=== PATIENT | female | born 1935 | race Caucasian/White ===

== ENCOUNTER 2019-03-08 22:28 | Inpatient (IN) ==
[2019-03-08] MEDS ORDERED: Ondansetron 4 MG/2 ML VIAL IVP ONE (22:31)
[2019-03-08] MEDS ORDERED: 0.9 % Sodium Chloride 1,000 ML IVC ONE (22:31)
[2019-03-08 23:06] LABS: Basophils # 0.1 K/mcL (0.0-0.2); Basophils % 0.6 %; Eosinophils # 0.1 K/mcL (0.0-0.6); Eosinophils % 0.9 %; Hematocrit 34.4 % (35.3-44.9); Hemoglobin 11.2 g/dL (11.5-15.4); Immature Granulocytes % 0.4 % (0-4); Lymphocytes % 10.6 %; Mean Corpuscular HGB Conc 32.6 g/dL (31.6-35.5); Mean Corpuscular Hemoglobin 30.6 pg (28.0-33.3); Mean Platelet Volume 9.6 fL (9.4-12.4); Monocytes # 0.6 K/mcL (0.0-1.3); Monocytes % 6.9 %; Neutrophils # 7.5 K/mcL (1.6-8.9); Platelet Count 231 K/mcL (140-400); Red Blood Count 3.66 M/mcL (3.82-4.97); Red Cell Distribution Width 15.3 % (11.5-14.5); Segmented Neutrophils % 80.6 %; White Blood Count 9.3 K/mcL (4.3-11.1)
[2019-03-08 23:29] LABS: Bilirubin,Urine Negative (Negative); Blood,Urine Negative (Negative); Clarity,Urine Slightly Cloudy (Clear); Color,Urine Yellow (Yellow); Glucose,Urine (UA) Normal (Normal); Ketones,Urine Negative (Negative); Leukocyte Esterase,Urine Trace (Negative); Nitrite,Urine Negative (Negative); PH,Urine 5.5 pH Units (5.0-8.0); Protein,Urine 100 mg/dL (Neg-Trace); Specific Gravity,Urine 1.025 (1.010-1.025); Urobilinogen,Urine Normal (Normal)
[2019-03-08 23:35] LABS: Calcium 8.9 mg/dL (8.6-10.3); Potassium 4.9 mEq/L (3.5-5.1)
[2019-03-08 23:36] LABS: Alanine Aminotransferase 22 Units/L (7-52); Albumin 4.1 g/dL (3.5-5.7); Albumin/Globulin Ratio 1.6 (1.1-2.2); Alkaline Phosphatase 77 Units/L (34-104); Aspartate Amino Transferase 31 Units/L (13-39); Bilirubin,Direct 0.1 mg/dL (0.0-0.2); Bilirubin,Indirect 0.5 mg/dL (0.0-1.2); Bilirubin,Total 0.6 mg/dL (0.3-1.0); Globulin 2.6 g/dL (2.4-3.5); Lipase 61 Units/L (11-82); Total Protein 6.7 g/dL (6.4-8.9)
[2019-03-08 23:37] LABS: Bacteria,Urine Few per hpf (None-Few); Squamous Epithelial Cell,Urine Moderate per lpf (None-Few); WBC,Urine 15-30 per hpf (0-3)
[2019-03-08 23:39] LABS: Hyaline Casts,Urine Few per lpf (None-Few)
[2019-03-08 23:40] LABS: Troponin I < 0.03 ng/mL (< 0.04)
--- NOTE | 2019-03-09 01:25 | Emergency Department Note ---
Disposition Clinical Impression: Weakness generalized Urinary tract infection Qualifiers: Urinary tract infection type: site unspecified Hematuria presence: with hematu noman Qualified Code(s): N39.0 - Urinary tract infection, site not specified; R31.9 - Hematuria, unspecified Disposition: Admitted As Inpatient Condition: Fair Referrals: Esthela Harris DO [Primary Care Provider] - Time of Disposition: :30 Weakness HPI - General Chief complaint: ED Fall Stated complaint: fall Time Seen by Provider: 03/08/19 22:29 Source: patient, EMS Mode of arrival: EMS Limitations: physical limitation, other Nursing Notes Reviewed: Yes Vital Signs Reviewed: Yes - History of Present Illness Pt Subjective Complaint: generalized weakness/fatigue Onset (ago): day(s) Duration: constant, gradually worsening Location: generalized Pain Severity: none Pain Scale: 0 Improves with: none Worsens with: none Context: other (Patient was brought in because she had a fall at home today because she been weak.) Associated symptoms: Reports: other (Patient did hit the left side of her face when she fell. She does not complain of any other symptoms.) - Related Data Home Medications Medication Instructions Recorded Confirmed Furosemide [Lasix] 40 mg PO BID 05/01/15 12/29/18 Metoprolol [Lopressor] 100 mg PO BID 05/01/15 12/29/18 Propafenone [Rhythmol] 150 mg PO TID 05/01/15 12/29/18 Warfarin [Coumadin] 3 mg PO AD 05/01/15 12/29/18 Allopurinol [Zyloprim 100 MG] 100 mg PO BID 11/12/16 12/29/18 SitaGLIPtin [Januvia] 25 mg PO DAILY 02/01/17 12/29/18 Tramadol HCl [Ultram] 50 mg PO QID PRN 08/02/17 12/29/18 dilTIAZem HCl [Diltiazem ER] 120 mg PO DAILY 08/02/17 12/29/18 Acetaminophen [Tylenol Arthritis] 1 - 2 tab PO Q8H PRN 02/28/18 12/29/18 Allergies Allergy/AdvReac Type Severity Reaction Status Date / Time aspirin Allergy See Verified 12/29/18 03:53 [From Darvon Compound-65] Comments caffeine Allergy See Verified 12/29/18 03:53 [From Darvon Compound-65] Comments propoxyphene [From Darvon] Allergy See Verified 12/29/18 03:53 Comments All systems ED: reviewed and negative except as stated. Constitutional: Denies: fever, chills ENT ED: Denies: ear pain, throat pain, congestion Cardiovascular: Denies: chest pain, palpitations Respiratory: Denies: cough, dyspnea Gastrointestinal: Denies: abdominal pain, vomiting, diarrhea Musculoskeletal: Denies: back pain, neck pain Integumentary: Reports: abrasion (To face) Neurological: Denies: headache, numbness, paresthesias Past Medical History - Past Medical History Attestation: Yes The following information was validated with the patient. Source: patient, old records reviewed, nursing notes reviewed Medical history: Reports: CHF, diabetes, hypertension, other Surgical history: Reports: cholecystectomy, hysterectomy, pacemaker/AICD Psychiatric history: Reports: no psych history ROAD TEST EXAMINER history: Reports: no ROAD TEST EXAMINER history - Social History Smoking Status: Never smoker Smokeless Tobacco Status: No Alcohol use: Reports: none Drug use: Reports: none Physical Exam - General Limitations: physical limitation, other General appearance: alert, in no apparent distress - Head Head exam: atraumatic, normocephalic, normal inspection - Eye Eye exam: Present: normal appearance, PERRL, EOMI. Absent: scleral icterus, conjunctival injection - ENT ENT exam: normal exam, normal oropharynx, mucous membranes moist, normal external ear exam - Neck Neck exam: Present: normal inspection, full ROM, trachea midline. Absent: tenderness, meningismus - Chest Chest inspection: Present: normal inspection, symmetric chest wall rise. Absent: tenderness - Respiratory Respiratory exam: Present: normal lung sounds bilaterally. Absent: respiratory distress, wheezes - Cardiovascular Cardiovascular exam: Present: regular rate, normal rhythm, normal heart sounds - Abdominal Exam Abdominal exam: Present: soft, Non-Tender, normal bowel sounds - Extremities Exam Extremities exam: Present: pedal edema. Absent: tenderness - Neurological Exam Neurological exam: Present: alert, oriented X3. Absent: motor sensory deficit - Psychiatric Psychiatric exam: Present: normal affect, normal mood - Skin Skin exam: Present: warm, dry, other (Abrasion to left side of face) Course Course Narrative: Patient arrives after a fall at home but this is superimposed on some gener alized weakness over the past couple of days. Today's fall resulted in abrasion to the left side of her face. Her mental status is normal and her neurologic examination is normal. She definitely has generalized weakness as evidenced by are need to help her get up at the bedside just use a bedside commode. We will do a weakness workup. Disposition will be based on diagnostic results and reevaluation. - Reevaluation(s) Reevaluation #1: Urinalysis is positive. The rest of the workup really unremarkable. Her values are at baseline or better than baseline. But with dysuria tract infection she has generalized weakness its resulting in falls. She is to be admitted. I have already spoken with the hospitalist. I have already given her Rocephin. Time: 01:28 - Consultations Consultation #1: Dr. Casey, hospitalist - I discussed the case with the hospitalist. He accepted the patient for admission. Time: 01:10 Vital Signs Temperature 97.0 F L 03/08/19 22:30 Pulse Rate 62 03/08/19 22:30 Respiratory Rate 16 03/08/19 22:30 Blood Pressure 158/74 03/08/19 22:30 O2 Sat by Pulse Oximetry 94 03/08/19 22:30 Temperature 97.0 F L 03/08/19 22:30 Pulse Rate 62 03/08/19 22:30 Respiratory Rate 16 03/08/19 22:30 Blood Pressure 158/74 03/08/19 22:30 O2 Sat by Pulse Oximetry 94 03/08/19 22:30 Oxygen Delivery Oxygen Delivery Room Air Weakness - Medical Records Medical records reviewed: Yes I reviewed the patient's medical records. - Lab Data Lab results reviewed: Yes I reviewed the patient's lab results. Result diagrams: 03/08/19 23:00 03/08/19 23:00 Lab Results 03/08/19 03/08/19 03/08/19 Range/Units 23:00 23:00 23:00 WBC 9.3 (4.3-11.1) K/mcL RBC 3.66 L (3.82-4.97) M/mcL Hgb 11.2 L (11.5-15.4) g/dL Hct 34.4 L (35.3-44.9) % MCV 94.0 (83.0-100.0) fL MCH 30.6 (28.0-33.3) pg MCHC 32.6 (31.6-35.5) g/dL RDW 15.3 H (11.5-14.5) % Plt Count 231 (140-400) K/mcL MPV 9.6 (9.4-12.4) fL Immature Gran % 0.4 (0-4) % Seg Neutrophils % 80.6 % Lymphocytes % 10.6 % Monocytes % 6.9 % Eosinophils % 0.9 % Basophils % 0.6 % Neutrophils # 7.5 (1.6-8.9) K/mcL Lymphocytes # 1.0 (0.6-4.6) K/mcL Monocytes # 0.6 (0.0-1.3) K/mcL Eosinophils # 0.1 (0.0-0.6) K/mcL Basophils # 0.1 (0.0-0.2) K/mcL Sodium 136 (136-145) mEq/L Potassium 4.9 (3.5-5.1) mEq/L Chloride 108 H (98-107) mEq/L Carbon Dioxide 19 L (23-29) mEq/L BUN 26 H (8-23) mg/dL Creatinine 1.90 H (0.60-1.20) mg/dL Est GFR ( Amer) 31 L (> 60) Est GFR (Non-Af Amer) 25 L (> 60) BUN/Creatinine Ratio 14 (6-26) Glucose 144 H (70-105) mg/dL Calculated Osmolality 289 (280-300) Lactic Acid (0.5-2.2) mmol/L Calcium 8.9 (8.6-10.3) mg/dL Total Bilirubin 0.6 (0.3-1.0) mg/dL Direct Bilirubin 0.1 (0.0-0.2) mg/dL Indirect Bilirubin 0.5 (0.0-1.2) mg/dL AST 31 (13-39) Units/L ALT 22 (7-52) Units/L Alkaline Phosphatase 77 (34-104) Units/L Troponin I < 0.03 (< 0.04) ng/mL Serum Total Protein 6.7 (6.4-8.9) g/dL Albumin 4.1 (3.5-5.7) g/dL Globulin 2.6 (2.4-3.5) g/dL Albumin/Globulin Ratio 1.6 (1.1-2.2) Lipase 61 (11-82) Units/L Urine Color (Yellow) Urine Clarity (Clear) Urine pH (5.0-8.0) pH Units Ur Specific [place] (1.010-1.025) Urine Protein (Neg-Trace) mg/dL Urine Glucose (UA) (Normal) mg/dL Urine Ketones (Negative) mg/dL Urine Blood (Negative) Urine Nitrite (Negative) Urine Bilirubin (Negative) Urine Urobilinogen (Normal) mg/dL Ur Leukocyte Esterase (Negative) Urine Microscopic RBC (0-3) per hpf Urine Microscopic WBC (0-3) per hpf Ur Squamous Epith Cells (None-Few) per lpf Urine Bacteria (None-Few) per hpf Hyaline Casts (None-Few) per lpf Ur Culture Indicated? (NO) 03/08/19 03/08/19 Range/Units 23:00 23:25 WBC (4.3-11.1) K/mcL RBC (3.82-4.97) M/mcL Hgb (11.5-15.4) g/dL Hct (35.3-44.9) % MCV (83.0-100.0) fL MCH (28.0-33.3) pg MCHC (31.6-35.5) g/dL RDW (11.5-14.5) % Plt Count (140-400) K/mcL MPV (9.4-12.4) fL Immature Gran % (0-4) % Seg Neutrophils % % Lymphocytes % % Monocytes % % Eosinophils % % Basophils % % Neutrophils # (1.6-8.9) K/mcL Lymphocytes # (0.6-4.6) K/mcL Monocytes # (0.0-1.3) K/mcL Eosinophils # (0.0-0.6) K/mcL Basophils # (0.0-0.2) K/mcL Sodium (136-145) mEq/L Potassium (3.5-5.1) mEq/L Chloride (98-107) mEq/L Carbon Dioxide (23-29) mEq/L BUN (8-23) mg/dL Creatinine (0.60-1.20) mg/dL Est GFR ( Amer) (> 60) Est GFR (Non-Af Amer) (> 60) BUN/Creatinine Ratio (6-26) Glucose (70-105) mg/dL Calculated Osmolality (280-300) Lactic Acid 0.9 (0.5-2.2) mmol/L Calcium (8.6-10.3) mg/dL Total Bilirubin (0.3-1.0) mg/dL Direct Bilirubin (0.0-0.2) mg/dL Indirect Bilirubin (0.0-1.2) mg/dL AST (13-39) Units/L ALT (7-52) Units/L Alkaline Phosphatase (34-104) Units/L Troponin I (< 0.04) ng/mL Serum Total Protein (6.4-8.9) g/dL Albumin (3.5-5.7) g/dL Globulin (2.4-3.5) g/dL Albumin/Globulin Ratio (1.1-2.2) Lipase (11-82) Units/L Urine Color Yellow (Yellow) Urine Clarity Slightly Cloudy A (Clear) Urine pH 5.5 (5.0-8.0) pH Units Ur Specific [place] 1.025 (1.010-1.025) Urine Protein 100 H (Neg-Trace) mg/dL Urine Glucose (UA) Normal (Normal) mg/dL Urine Ketones Negative (Negative) mg/dL Urine Blood Negative (Negative) Urine Nitrite Negative (Negative) Urine Bilirubin Negative (Negative) Urine Urobilinogen Normal (Normal) mg/dL Ur Leukocyte Esterase Trace H (Negative) Urine Microscopic RBC 3-5 H (0-3) per hpf Urine Microscopic WBC 15-30 H (0-3) per hpf Ur Squamous Epith Cells Moderate H (None-Few) per lpf Urine Bacteria Few (None-Few) per hpf Hyaline Casts Few (None-Few) per lpf Ur Culture Indicated? YES A (NO) - Radiology Data Radiology results reviewed: Yes I reviewed the patient's radiology results. - EKG Data EKG attestation: Yes I reviewed and interpreted this EKG. EKG results narrative: Twelve-lead EKG shows atrial paced rhythm. Rate of 60. Normal axis. Good hour progression across cordon. No acute ischemic changes.
[2019-03-09] MEDS ORDERED: Naloxone 0.4 MG/ML INJ IVP PRN (02:42)
[2019-03-09] MEDS ORDERED: 0.9 % Sodium Chloride 1,000 ML IVC SCH (02:42)
[2019-03-09 09:11] LABS: INR 3.5; Prothrombin Time 39.7 Seconds (9.4-12.1)
[2019-03-09] MEDS: *HR* SitaGLIPtin 25 MG TABLET PO SCH ×3 (09:52→19:55)
[2019-03-09] MEDS: Furosemide 40 MG TABLET PO SCH ×2 (09:52→10:03)
[2019-03-09] MEDS: Diltiazem CD (24hr) 120 MG CAPSULE PO SCH (09:53)
--- NOTE | 2019-03-09 10:42 | Internal Med History&Physical ---
Date of Encounter: 03/09/19 Time of Encounter: 10:25 Assessment and Plan (1) Urinary tract infection Current visit: Yes Status: Acute Urine culture pending. Will hold IV fluids given hx of CHF and proceed with IV antibiotics. Qualifiers: Urinary tract infection type: acute cystitis Hematuria presence: without hematuria Qualified Code(s): N30.00 - Acute cystitis without hematuria (2) Weakness generalized Current visit: Yes Status: Acute Likely secondary to underlying UTI. Will treat UTI, have pt up out of bed to chair, and place PT/OT consult. If pt is doing well and progressing to baseline, consider discharge to home tomorrow. (3) CKD (chronic kidney disease) Current visit: No Status: Chronic Stable to improved. Pt is followed by [facility]. Will continue current regimen. Qualifiers: Chronic kidney disease stage: stage 3 (moderate) Qualified Code(s): N18.3 - Chronic kidney disease, stage 3 (moderate) (4) Diabetes mellitus Current visit: No Status: Chronic Stable. Continue home regimen. Qualifiers: Diabetes mellitus type: type 2 Diabetes mellitus rn long term care insulin use: without fdc use Diabetes mellitus complication status: with neurologic complications Diabetes mellitus complication detail: with polyneuropathy Qualified Code(s): E11.42 - Type 2 diabetes mellitus with diabetic polyneuropathy (5) Afib Current visit: No Status: Chronic Rate-controlled. INR supratherapeutic. Will reduce coumadin to 3mg daily and have pt f/u with coumadin clinic at discharge for further monitoring. She is aware to notify coumadin clinic of any antibiotic or med changes made at time of discharge. Qualifiers: Atrial fibrillation type: paroxysmal Qualified Code(s): I48.0 - Paroxysmal atrial fibrillation (6) HTN (hypertension) Current visit: No Status: Chronic Fair control given age. Pt notes that she has been off all diuretics for a week at home. Will have pt remain off diuretic at this time and monitor for elevated BP and fluid overload. Qualifiers: Hypertension type: essential hypertension Qualified Code(s): I10 - Essential (primary) hypertension (7) Anemia Current visit: No Status: Acute Stable and at baseline. Secondary to CKD. Will monitor. Qualifiers: Anemia type: iron deficiency Iron deficiency anemia type: unspecified iron deficiency Qualified Code(s): D50.9 - Iron deficiency anemia, unspecified (8) Supratherapeutic INR Current visit: No Status: Acute Will monitor on reduced coumadin dose. INR goal 2-3. Internal Medicine - H&P: HPI Chief complaint: weakness, fall Admitted From: Emergency Dept Plans for Post Hospital Care: Home History of present illness: Ms. Wallace is a 84 year old female that presented to ED following a fall at her home in which pt struck face. Pt notes that she lives alone and has been feeling generally well until noting increased fatigue and weakness over last few days. On day of presentation, she notes that she was doing work at a desk and experienced considerable vertigo upon standing in which she felt as if her surroundings were spinning upwards. She states that she new she was going to fall and braced herself for the fall, striking only the side of her face upon falling. She denies chest pain, LOC, headache, palpitations, focal weakness, slurred speech, abdominal pain, fevers, chills or urinary symptoms. Pt was transported to ED and had a negative evaluation outside of UA consistent with UTI. Pt was placed on IV antibiotics, IV fluids, and admitted for further evaluation and treatment. Upon examination today, patient states that she feels well and has no complaints. She has yet to be out of bed since being admitted last night, but denies any further episodes of weakness or vertigo. Past Med Surg Social Fam HX - Past Medical History Medical history: atrial fibrillation, CHF, diabetes, hypertension, other Additional medical history: RENAL INSUFFIENCY Psychiatric history: no psych history - Past Surgical History Surgical History: cholecystectomy, hysterectomy, pacemaker/AICD Additional surgical history: RT FISTULA SINCE 10/2018 FOR FUTHER POSSIBLE DIALYSIS - Social History Smoking Status: Never smoker Smokeless Tobacco Status: No Alcohol use: none Drug use: none Internal Medicine - H&P: Meds Furosemide [Lasix] 40 mg PO BID 05/01/15 [History] Metoprolol [Lopressor] 100 mg PO BID 05/01/15 [History] Propafenone [Rhythmol] 150 mg PO TID 05/01/15 [History] Warfarin [Coumadin] 3 mg PO AD 05/01/15 [History] Allopurinol [Zyloprim 100 MG] 100 mg PO BID 11/12/16 [History] SitaGLIPtin [Januvia] 25 mg PO DAILY 02/01/17 [History] Tramadol HCl [Ultram] 50 mg PO QID PRN 08/02/17 [History] dilTIAZem HCl [Diltiazem ER] 120 mg PO DAILY 08/02/17 [History] Acetaminophen [Tylenol Arthritis] 1 - 2 tab PO Q8H PRN 02/28/18 [History] Allergy/AdvReac Type Severity Reaction Status Date / Time aspirin Allergy See Verified 12/29/18 03:53 [From Darvon Compound-65] Comments caffeine Allergy See Verified 12/29/18 03:53 [From Darvon Compound-65] Comments propoxyphene [From Darvon] Allergy See Verified 12/29/18 03:53 Comments All Systems PM: A 10-system review of systems was performed and is negative for pertinent findings except as documented above in the HPI. - Constitutional Vitals: Temp Pulse Resp BP Pulse Ox 97.5 F L 77 16 148/78 96 03/09/19 07:30 03/09/19 07:30 03/09/19 07:30 03/09/19 07:30 03/09/19 07:30 Exam: Gen: Lying in bed, NAD HEENT: NC, AT Neck: Trachea midline, no mass Pulm: No respiratory distress, CTAB CV: Normal S1 and S2, irregularly irregular rhythm Abdomen: Soft, ND, NT Ext: No C/C/E Neuro: No appreciable motor/sensor deficits Skin: Warm and dry, no rash Psych: A&Ox3 Internal Med - H&P Results - Labs CBC & Chem 7: 03/08/19 23:00 03/08/19 23:00 Labs: Short CBC 03/08/19 Range/Units 23:00 WBC 9.3 (4.3-11.1) K/mcL Hgb 11.2 L (11.5-15.4) g/dL Hct 34.4 L (35.3-44.9) % Plt Count 231 (140-400) K/mcL Neutrophils # 7.5 (1.6-8.9) K/mcL BMP 03/08/19 23:00 Sodium 136 Potassium 4.9 Chloride 108 H Carbon Dioxide 19 L BUN 26 H Creatinine 1.90 H Glucose 144 H Calcium 8.9 Cardiac Enzymes 03/08/19 Range/Units 23:00 Troponin I < 0.03 (< 0.04) ng/mL Liver Function 03/08/19 Range/Units 23:00 Total Bilirubin 0.6 (0.3-1.0) mg/dL Direct Bilirubin 0.1 (0.0-0.2) mg/dL AST 31 (13-39) Units/L ALT 22 (7-52) Units/L Alkaline Phosphatase 77 (34-104) Units/L Albumin 4.1 (3.5-5.7) g/dL Urine 03/08/19 Range/Units 23:25 Urine Color Yellow (Yellow) Urine Clarity Slightly Cloudy A (Clear) Urine pH 5.5 (5.0-8.0) pH Units Ur Specific [place] 1.025 (1.010-1.025) Urine Protein 100 H (Neg-Trace) mg/dL Urine Glucose (UA) Normal (Normal) mg/dL - Impressions ITS Impressions Cervical Spine CT 03/08/19 22:30 IMPRESSION: No acute abnormality of the cervical spine. D/ / Moni Godinez MD / Moni Godinez MD Interpreting Provider: Moni Godinez MD Head CT 03/08/19 22:30 IMPRESSION: No acute intracranial abnormality. D/ / Moni Godinez MD / Moni Godinez MD Interpreting Provider: Moni Godinez MD
--- NOTE | 2019-03-09 11:49 | Electrocardiograph Report ---
[place] [id number] Test Date: 2019-03-08 Pat Name: rBe Wallace Department: EDP-12 Room: [facility] Gender: F [employer]: : 1935 Requested By: Gael Snell Order Number: [id number] Reading MD: Jean Contreras Measurements Intervals [place] Rate: 60 P: AK: 306 QRS: 3 QRSD: 111 T: 80 QT: 468 QTc: 468 Interpretive Statements Atrial-paced rhythm Probable anterior infarct, age indeterminate Electronically Signed On 03-09-2019 11:47:56 EDT by Jean Contreras
[2019-03-09] MEDS: *HR* Warfarin 3 MG TABLET PO SCH (17:22)
[2019-03-09] MEDS ORDERED: *HR* Warfarin 3 MG TABLET PO SCH (18:00)
[2019-03-10 06:57] LABS: Hematocrit 29.9 % (35.3-44.9); Hemoglobin 9.6 g/dL (11.5-15.4); Mean Corpuscular HGB Conc 32.1 g/dL (31.6-35.5); Mean Corpuscular Hemoglobin 30.4 pg (28.0-33.3); Mean Corpuscular Volume 94.6 fL (83.0-100.0); Mean Platelet Volume 10.1 fL (9.4-12.4); Platelet Count 198 K/mcL (140-400); Red Blood Count 3.16 M/mcL (3.82-4.97); Red Cell Distribution Width 15.1 % (11.5-14.5); White Blood Count 7.4 K/mcL (4.3-11.1)
[2019-03-10 07:10] LABS: Albumin 3.3 g/dL (3.5-5.7); Calcium 8.1 mg/dL (8.6-10.3); Phosphorous 3.4 mg/dL (2.7-4.5); Potassium 4.7 mEq/L (3.5-5.1)
[2019-03-10] MEDS: Diltiazem CD (24hr) 120 MG CAPSULE PO SCH (08:41)
[2019-03-10] MEDS ORDERED: cefTRIAXone 1,000 MG in 0.9 % Sodium Chloride Mini Bag 100 ML IVPB SCH (09:00)
[2019-03-10] MEDS: Furosemide 40 MG/4 ML VIAL IVP SCH ×2 (14:20→17:38)
--- NOTE | 2019-03-10 15:37 | Internal Med Progress Note ---
Date of Encounter: 03/10/19 Time of Encounter: 12:50 - Assessment and plan (1) JAC (acute kidney injury) Current Visit: No Status: Acute Assessment and plan: March 10. Acute on chronic. Renal indices will be monitored. (2) Weakness generalized Current Visit: Yes Status: Acute Assessment and plan: March 10. PT and OT evaluations have been ordered. (3) Urinary tract infection Current Visit: Yes Status: Acute Assessment and plan: March 10. Urine culture shows mixed organisms. Antibiotics will be discontinued. Qualifiers: Urinary tract infection type: acute cystitis Hematuria presence: without hematuria Qualified Code(s): N30.00 - Acute cystitis without hematuria (4) DJD (degenerative joint disease) Current Visit: Yes Status: Acute Assessment and plan: March 10. Tylenol will be ordered on a prn basis. Qualifiers: Osteoarthritis location: unspecified site Osteoarthritis type: primary Qualified Code(s): M19.91 - Primary osteoarthritis, unspecified site (5) CKD (chronic kidney disease) Current Visit: No Status: Chronic Assessment and plan: March 10. Renal indices will be monitored. Qualifiers: Chronic kidney disease stage: stage 3 (moderate) Qualified Code(s): N18.3 - Chronic kidney disease, stage 3 (moderate) (6) Diabetes mellitus Current Visit: No Status: Chronic Assessment and plan: March 10. Hemoglobin A1c 6.0% on 09/13/2018. Continue Januvia and Accu- Cheks with SSI. Qualifiers: Diabetes mellitus type: type 2 Diabetes mellitus intermediate insulin use: without intermediate use Diabetes mellitus complication status: with neurologic complications Diabetes mellitus complication detail: with polyneuropathy Qualified Code(s): E11.42 - Type 2 diabetes mellitus with diabetic polyneuropathy (7) Afib Current Visit: No Status: Chronic Assessment and plan: March 10. Status post peacemaker placement. Resume Coumadin when INR decreases to satisfactory level. Qualifiers: Atrial fibrillation type: paroxysmal Qualified Code(s): I48.0 - Paroxysmal atrial fibrillation (8) HTN (hypertension) Current Visit: No Status: Chronic Assessment and plan: March 10. Continue Lopressor, Cardizem, and Lasix Qualifiers: Hypertension type: essential hypertension Qualified Code(s): I10 - Essential (primary) hypertension (9) Anemia Current Visit: No Status: Acute Assessment and plan: March 10. Anemia testing 01/14/2019 showed iron 116, transferrin saturation 30%, transferrin 79, ferritin 37, B12 500, and folate 19.0. Anemia likely due to chronic kidney disease. Monitor CBC. Qualifiers: Anemia type: iron deficiency Iron deficiency anemia type: unspecified iron deficiency Qualified Code(s): D50.9 - Iron deficiency anemia, unspecified (10) Gout Current Visit: Yes Status: Acute Assessment and plan: March 10. Uric acid level 5.6 on 01/14/2019. Continue allopurinol Qualifiers: Gout site: unspecified site Gout etiology: unspecified cause Chronicity: chronic Presence of tophus: without tophus Qualified Code(s): M1A.9XX0 - Chronic gout, unspecified, without tophus (tophi) (11) Edema Current Visit: Yes Status: Acute Assessment and plan: March 10. IV Lasix has been ordered. Qualifiers: Edema type: unspecified Qualified Code(s): R60.9 - Edema, unspecified - Subjective Interval history: March 10. She has no new complaints and feels less dyspneic. Review of systems reveals the following: Gen.: She states her weight has increased over 50 pounds in the past 2 years which she attributes to fluid retention Cardiovascular: She has history of hypertension and atrial fibrillation. She had a pacemaker placed several years ago. She denies heart failure NE DVT or pulmonary embolus Respiratory: She is a lifelong nonsmoker and denies chronic lung disease GI: She denies disorders of her liver gallbladder or exocrine pancreas : She has chronic kidney disease stage III and follows with a animal control officer. She denies other kidney or bladder disorders. Neurologic: She denies large distribution strokes or seizures. Endocrine: She was diagnosed with DM 2 approximately 2014. She reports thyroid nodularity. She denies hyperlipidemia. Hematology/oncology: She was unaware she had anemia. She denies internal malignancies or blood disorders. Psychiatric: She denies anxiety depression or other mental health issues. [place] skeletal: She has history of gout and DJD. She denies other bone joint or muscle disorders. - Constitutional Vitals: Temp Pulse Resp BP Pulse Ox 98.5 F 68 15 161/78 94 03/10/19 07:50 03/10/19 07:50 03/10/19 07:50 03/10/19 07:50 03/10/19 07:50 Exam: Gen.: She is a well-developed overweight female sitting in chair at bedside who appears in no acute distress HEENT: Head shows ecchymosis on the left lateral face and temporal area. Eyes: EOMI. There is no scleral icterus. Mouth: Mucosa is moist. Neck: There is no thyromegaly or adenopathy noted. Heart: Regular without murmurs gallops or ectopics Lungs: No wheezes or crackles are heard. Abdomen: Exam is difficult because she is in the seated position. There is nonspecific firmness to the abdomen but no tenderness or guarding noted Extremities: She has 3-4+ edema of the dorsum feet and lower legs bilaterally. She has gauze wrapped around her left lower leg. There is a shallow ulcer with serous drainage on the left lower anterior medial paz. Dorsalis pedis and posterior tibial pulses cannot be palpated. Neurologic: Mental status: She is talkative and a good historian. Cranial nerves: Smile is symmetric. Forehead wrinkles bilaterally. Tongue protrudes midline. EOMI. Motor: There is no pronator drift. Cerebellar: Finger to nose is intact bilaterally. Skin: Warm and dry Internal Medicine: Result - Labs CBC & Chem 7: 03/10/19 05:50 03/10/19 05:50 Labs: Short CBC 03/10/19 Range/Units 05:50 WBC 7.4 (4.3-11.1) K/mcL Hgb 9.6 L D (11.5-15.4) g/dL Hct 29.9 L (35.3-44.9) % Plt Count 198 (140-400) K/mcL BMP 03/10/19 05:50 Sodium 138 Potassium 4.7 Chloride 111 H Carbon Dioxide 23 BUN 28 H Creatinine 2.07 H Glucose 93 Calcium 8.1 L Liver Function 03/10/19 Range/Units 05:50 Albumin 3.3 L (3.5-5.7) g/dL - ABG Interpretation ABG results: PT/INR, D-dimer PT 39.7 Seconds (9.4-12.1) H 03/09/19 06:00 Consult Discharge Plan - Plan Referrals: Esthela Harris DO [Primary Care Provider] -
[2019-03-10] MEDS ORDERED: Acetaminophen 325 MG TABLET PO PRN (15:51)
[2019-03-10] MEDS: *HR* Warfarin 3 MG TABLET PO SCH (18:51)
[2019-03-10] MEDS: *HR* SitaGLIPtin 25 MG TABLET PO SCH (19:50)
[2019-03-10] MEDS: Diltiazem SR (12hr) 60 MG CAPSULE PO SCH (19:50)
[2019-03-11 06:44] LABS: Basophils # 0.1 K/mcL (0.0-0.2); Basophils % 0.7 %; Eosinophils # 0.1 K/mcL (0.0-0.6); Eosinophils % 1.6 %; Hematocrit 31.9 % (35.3-44.9); Hemoglobin 10.4 g/dL (11.5-15.4); Immature Granulocytes % 0.1 % (0-4); Lymphocytes # 1.8 K/mcL (0.6-4.6); Lymphocytes % 21.3 %; Mean Corpuscular HGB Conc 32.6 g/dL (31.6-35.5); Mean Corpuscular Hemoglobin 30.6 pg (28.0-33.3); Mean Corpuscular Volume 93.8 fL (83.0-100.0); Mean Platelet Volume 9.8 fL (9.4-12.4); Monocytes # 1.1 K/mcL (0.0-1.3); Monocytes % 12.6 %; Neutrophils # 5.3 K/mcL (1.6-8.9); Platelet Count 207 K/mcL (140-400); Red Cell Distribution Width 15.1 % (11.5-14.5); Segmented Neutrophils % 63.7 %; White Blood Count 8.3 K/mcL (4.3-11.1)
[2019-03-11 06:57] LABS: INR 3.3; Prothrombin Time 37.3 Seconds (9.4-12.1)
[2019-03-11 07:08] LABS: Calcium 8.5 mg/dL (8.6-10.3)
[2019-03-11] MEDS: Furosemide 40 MG/4 ML VIAL IVP SCH ×2 (08:46→16:11)
[2019-03-11] MEDS ORDERED: cefTRIAXone 1,000 MG in Water for inj. (sterile) 10 ML IVPB SCH (09:00)
--- NOTE | 2019-03-11 11:24 | Internal Med Progress Note ---
Date of Encounter: 03/11/19 Time of Encounter: 11:17 - Assessment and plan (1) JAC (acute kidney injury) Current Visit: No Status: Acute Assessment and plan: March 10. Acute on chronic. Renal indices will be monitored. March 11. Creatinine unchanged at 2.07. Continue to monitor. (2) Weakness generalized Current Visit: Yes Status: Acute Assessment and plan: March 10. PT and OT evaluations have been ordered. (3) Urinary tract infection Current Visit: Yes Status: Acute Assessment and plan: March 10. Urine culture shows mixed organisms. Antibiotics will be discontinued. Qualifiers: Urinary tract infection type: acute cystitis Hematuria presence: without hematuria Qualified Code(s): N30.00 - Acute cystitis without hematuria (4) DJD (degenerative joint disease) Current Visit: Yes Status: Acute Assessment and plan: March 10. Tylenol will be ordered on a prn basis. Qualifiers: Osteoarthritis location: unspecified site Osteoarthritis type: primary Qualified Code(s): M19.91 - Primary osteoarthritis, unspecified site (5) CKD (chronic kidney disease) Current Visit: No Status: Chronic Assessment and plan: March 10. Renal indices will be monitored. Qualifiers: Chronic kidney disease stage: stage 3 (moderate) Qualified Code(s): N18.3 - Chronic kidney disease, stage 3 (moderate) (6) Diabetes mellitus Current Visit: No Status: Chronic Assessment and plan: March 10. Hemoglobin A1c 6.0% on 09/13/2018. Continue Januvia and Accu- Cheks with SSI. 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 Status post pacemaker placement. Resume Coumadin when INR decreases to satisfactory level. March 11. INR still elevated at 3.3. Hold Coumadin and monitor labs. Qualifiers: Atrial fibrillation type: paroxysmal Qualified Code(s): I48.0 - Paroxysmal atrial fibrillation (8) HTN (hypertension) Current Visit: No Status: Chronic Assessment and plan: March 10. Continue Lopressor, Cardizem, and Lasix Qualifiers: Hypertension type: essential hypertension Qualified Code(s): I10 - Essential (primary) hypertension (9) Anemia Current Visit: No Status: Acute Assessment and plan: March 10. Anemia testing 01/14/2019 showed iron 116, transferrin saturation 30%, transferrin 79, ferritin 37, B12 500, and folate 19.0. Anemia likely due to chronic kidney disease. Monitor CBC. Qualifiers: Anemia type: iron deficiency Iron deficiency anemia type: unspecified iron deficiency Qualified Code(s): D50.9 - Iron deficiency anemia, unspecified (10) Gout Current Visit: Yes Status: Acute Assessment and plan: March 10. Uric acid level 5.6 on 01/14/2019. Continue allopurinol Qualifiers: Gout site: unspecified site Gout etiology: unspecified cause Chronicity: chronic Presence of tophus: without tophus Qualified Code(s): M1A.9XX0 - Chronic gout, unspecified, without tophus (tophi) (11) Edema Current Visit: Yes Status: Acute Assessment and plan: March 10. IV Lasix has been ordered. March 11. Improved. BN peptide pending. Continue IV Lasix Qualifiers: Edema type: unspecified Qualified Code(s): R60.9 - Edema, unspecified - Subjective Interval history: March 10. She has no new complaints and feels less dyspneic. Review of systems reveals the following: Gen.: She states her weight has increased over 50 pounds in the past 2 years which she attributes to fluid retention Cardiovascular: She has history of hypertension and atrial fibrillation. She had a pacemaker placed several years ago. She denies heart failure [place] DVT or pulmonary embolus Respiratory: She is a lifelong nonsmoker and denies chronic lung disease GI: She denies disorders of her liver gallbladder or exocrine pancreas : She has chronic kidney disease stage III and follows with a medical front desk coordinator. She denies other kidney or bladder disorders. Neurologic: She denies large distribution strokes or seizures. Endocrine: She was diagnosed with DM 2 approximately 2015. She reports thyroid nodularity. She denies hyperlipidemia. Hematology/oncology: She was unaware she had anemia. She denies internal malignancies or blood disorders. Psychiatric: She denies anxiety depression or other mental health issues. Musko skeletal: She has history of gout and DJD. She denies other bone joint or muscle disorders. March 11. She has no new complaints. - Constitutional Vitals: Temp Pulse Resp BP Pulse Ox 98.8 F 64 16 167/83 95 03/11/19 07:09 03/11/19 07:09 03/11/19 07:09 03/11/19 07:09 03/11/19 07:09 Exam: She is resting comfortably in bed and appears in no acute distress. Her affect is bright and cheerful. There is decreased edema of her lower legs. Heart is regular (pacemaker) without ectopics. Lungs are clear anteriorly. I reviewed her medications and lab results. Internal Medicine: Result - Labs CBC & Chem 7: 03/11/19 06:22 03/11/19 06:22 Labs: Short CBC 03/11/19 Range/Units 06:22 WBC 8.3 (4.3-11.1) K/mcL Hgb 10.4 L (11.5-15.4) g/dL Hct 31.9 L (35.3-44.9) % Plt Count 207 (140-400) K/mcL Neutrophils # 5.3 (1.6-8.9) K/mcL BMP 03/11/19 06:22 Sodium 140 Potassium 4.0 Chloride 108 H Carbon Dioxide 24 BUN 29 H Creatinine 2.07 H Glucose 91 Calcium 8.5 L - ABG Interpretation ABG results: PT/INR, D-dimer PT 37.3 Seconds (9.4-12.1) H 03/11/19 06:22 Consult Discharge Plan - Plan Referrals: Esthela Harris DO [Primary Care Provider] -
[2019-03-11] MEDS: Diltiazem SR (12hr) 60 MG CAPSULE PO SCH (22:16)
[2019-03-11] MEDS: *HR* SitaGLIPtin 25 MG TABLET PO SCH (22:17)
[2019-03-12 07:01] VITALS: BP 144/79
[2019-03-12] MEDS: Furosemide 40 MG/4 ML VIAL IVP SCH ×2 (08:39→14:55)
--- NOTE | 2019-03-12 15:05 | Internal Med Progress Note ---
Date of Encounter: 03/12/19 Time of Encounter: 14:58 - Assessment and plan (1) JAC (acute kidney injury) Current Visit: No Status: Acute Assessment and plan: March 10. Acute on chronic. Renal indices will be monitored. March 11. Creatinine unchanged at 2.07. Continue to monitor. March 12. Recheck labs in a.m. (2) Weakness generalized Current Visit: Yes Status: Acute Assessment and plan: March 10. PT and OT evaluations have been ordered. (3) Urinary tract infection Current Visit: Yes Status: Acute Assessment and plan: March 10. Urine culture shows mixed organisms. Antibiotics will be discontinued. Qualifiers: Urinary tract infection type: acute cystitis Hematuria presence: without hematuria Qualified Code(s): N30.00 - Acute cystitis without hematuria (4) DJD (degenerative joint disease) Current Visit: Yes Status: Acute Assessment and plan: March 10. Tylenol will be ordered on a prn basis. Qualifiers: Osteoarthritis location: unspecified site Osteoarthritis type: primary Qualified Code(s): M19.91 - Primary osteoarthritis, unspecified site (5) CKD (chronic kidney disease) Current Visit: No Status: Chronic Assessment and plan: March 10. Renal indices will be monitored. Qualifiers: Chronic kidney disease stage: stage 3 (moderate) Qualified Code(s): N18.3 - Chronic kidney disease, stage 3 (moderate) (6) Diabetes mellitus Current Visit: No Status: Chronic Assessment and plan: March 10. Hemoglobin A1c 6.0% on 09/13/2018. Continue Januvia and Accu- Cheks with SSI. Qualifiers: Diabetes mellitus type: type 2 Diabetes mellitus fci insulin use: without ferry terminal agent use Diabetes mellitus complication status: with neurologic complications Diabetes mellitus complication detail: with polyneuropathy Qualified Code(s): E11.42 - Type 2 diabetes mellitus with diabetic polyneuropathy (7) Afib Current Visit: No Status: Chronic Assessment and plan: March 10. Status post pacemaker placement. Resume Coumadin when INR decreases to satisfactory level. March 11. INR still elevated at 3.3. Hold Coumadin and monitor labs. March 12. Recheck labs in a.m. Qualifiers: Atrial fibrillation type: paroxysmal Qualified Code(s): I48.0 - Paroxysmal atrial fibrillation (8) HTN (hypertension) Current Visit: No Status: Chronic Assessment and plan: March 10. Continue Lopressor, Cardizem, and Lasix Qualifiers: Hypertension type: essential hypertension Qualified Code(s): I10 - Essential (primary) hypertension (9) Anemia Current Visit: No Status: Acute Assessment and plan: March 10. Anemia testing 01/14/2019 showed iron 116, transferrin saturation 30%, transferrin 79, ferritin 37, B12 500, and folate 19.0. Anemia likely due to chronic kidney disease. Monitor CBC. Qualifiers: Anemia type: iron deficiency Iron deficiency anemia type: unspecified iron deficiency Qualified Code(s): D50.9 - Iron deficiency anemia, unspecified (10) Gout Current Visit: Yes Status: Acute Assessment and plan: March 10. Uric acid level 5.6 on 01/14/2019. Continue allopurinol Qualifiers: Gout site: unspecified site Gout etiology: unspecified cause Chronicity: chronic Presence of tophus: without tophus Qualified Code(s): M1A.9XX0 - Chronic gout, unspecified, without tophus (tophi) (11) Edema Current Visit: Yes Status: Acute Assessment and plan: March 10. IV Lasix has been ordered. March 11. Improved. BN peptide pending. Continue IV Lasix Qualifiers: Edema type: unspecified Qualified Code(s): R60.9 - Edema, unspecified - Subjective Interval history: March 10. She has no new complaints and feels less dyspneic. Review of systems reveals the following: Gen.: She states her weight has increased over 50 pounds in the past 2 years which she attributes to fluid retention Cardiovascular: She has history of hypertension and atrial fibrillation. She had a pacemaker placed several years ago. She denies heart failure [place] DVT or pulmonary embolus Respiratory: She is a lifelong nonsmoker and denies chronic lung disease GI: She denies disorders of her liver gallbladder or exocrine pancreas : She has chronic kidney disease stage III and follows with a microsoft application developer. She denies other kidney or bladder disorders. Neurologic: She denies large distribution strokes or seizures. Endocrine: She was diagnosed with DM 2 approximately 2014. She reports thyroid nodularity. She denies hyperlipidemia. Hematology/oncology: She was unaware she had anemia. She denies internal malignancies or blood disorders. Psychiatric: She denies anxiety depression or other mental health issues. Musko skeletal: She has history of gout and DJD. She denies other bone joint or muscle disorders. March 11. She has no new complaints. March 12. She has no new complaints. - Constitutional Vitals: Temp Pulse Resp BP Pulse Ox 98.6 F 63 16 144/79 95 03/12/19 07:00 03/12/19 07:00 03/12/19 07:00 03/12/19 07:00 03/12/19 07:00 Exam: She is sitting in a chair at bedside resting comfortably. Her affect is dixon rful. Extremities show minimal decrease in edema. I reviewed her medications and lab results. Internal Medicine: Result - Labs CBC & Chem 7: 03/11/19 06:22 03/11/19 06:22 - ABG Interpretation ABG results: PT/INR, D-dimer PT 37.3 Seconds (9.4-12.1) H 03/11/19 06:22 Consult Discharge Plan - Plan Referrals: Esthela Harris, [Primary Care Provider] -
--- NOTE | 2019-03-13 12:52 | Discharge Summary ---
Date of Encounter: 03/12/19 Time of Encounter: 14:58 - Discharge Diagnosis (1) JAC (acute kidney injury) Priority: Primary Status: Acute (2) Weakness generalized Priority: Secondary Status: Acute (3) Urinary tract infection Priority: Secondary Status: Acute Qualifiers: Urinary tract infection type: acute cystitis Hematuria presence: without hematuria Qualified Code(s): N30.00 - Acute cystitis without hematuria (4) DJD (degenerative joint disease) Priority: Secondary Status: Acute Qualifiers: Osteoarthritis location: unspecified site Osteoarthritis type: primary Qualified Code(s): M19.91 - Primary osteoarthritis, unspecified site (5) CKD (chronic kidney disease) Priority: Secondary Status: Chronic Qualifiers: Chronic kidney disease stage: stage 3 (moderate) Qualified Code(s): N18.3 - Chronic kidney disease, stage 3 (moderate) (6) Diabetes mellitus Priority: Secondary Status: Chronic Qualifiers: Diabetes mellitus type: type 2 Diabetes mellitus meterman insulin use: without custodial use Diabetes mellitus complication status: with neurologic complications Diabetes mellitus complication detail: with polyneuropathy Qualified Code(s): E11.42 - Type 2 diabetes mellitus with diabetic polyneuropathy (7) Afib Priority: Secondary Status: Chronic Qualifiers: Atrial fibrillation type: paroxysmal Qualified Code(s): I48.0 - Paroxysmal atrial fibrillation (8) HTN (hypertension) Priority: Secondary Status: Chronic Qualifiers: Hypertension type: essential hypertension Qualified Code(s): I10 - Essential (primary) hypertension (9) Anemia Priority: Secondary Status: Acute Qualifiers: Anemia type: iron deficiency Iron deficiency anemia type: unspecified iron deficiency Qualified Code(s): D50.9 - Iron deficiency anemia, unspecified (10) Gout Priority: Secondary Status: Acute Qualifiers: Gout site: unspecified site Gout etiology: unspecified cause Chronicity: chronic Presence of tophus: without tophus Qualified Code(s): M1A.9XX0 - Chronic gout, unspecified, without tophus (tophi) (11) Edema Priority: Secondary Status: Acute Qualifiers: Edema type: unspecified Qualified Code(s): R60.9 - Edema, unspecified Hospital course: Ms. Wallace is a 84 year old female was admitted March 09 after having a fall at home with blunt trauma to her left face. No significant injury was sustained. She was evaluated emergency room and admitted with diagnosis of UTI. Urine culture report showed mixed organisms. Antibiotics were not continued. Creatinine nieves to 2.07. This will be monitored in swing bed. Hemoglobin A1c was acceptable at 6.0 on 09/13/2018. Januvia was continued and Accu-Cheks with SSI were done. Coumadin was held because of elevated INR. Labs will be monitored in swing bed. Anemia testing showed findings consistent with chronic kidney disease and no factor deficiency. This will be monitored in swing bed. Uric acid level returned satisfactory at 5.6 on 01/14/2019. Allopurinol was continued. IV Lasix was given with slight improvement in edema. On March 12 she was discharged to swing bed for ongoing care needs. - Time Spent with Patient Total time spent providing and/or coordinating discharge services: - Discharge Medications Prescriptions: No Action Warfarin [Coumadin] 3 mg PO AD Propafenone [Rhythmol] 150 mg PO TID Metoprolol [Lopressor] 100 mg PO BID Furosemide [Lasix] 40 mg PO BID SitaGLIPtin [Januvia] 25 mg PO DAILY Tramadol HCl [Ultram] 50 mg PO QID PRN PRN Reason: Pain dilTIAZem HCl [Diltiazem ER] 120 mg PO DAILY Acetaminophen [Tylenol Arthritis] 1 - 2 tab PO Q8H PRN PRN Reason: Pain Allopurinol [Zyloprim 100 MG] 100 mg PO BID Home Medications: Furosemide [Lasix] 40 mg PO BID 05/01/15 [History] Metoprolol [Lopressor] 100 mg PO BID 05/01/15 [History] Propafenone [Rhythmol] 150 mg PO TID 05/01/15 [History] Warfarin [Coumadin] 3 mg PO AD 05/01/15 [History] Allopurinol [Zyloprim 100 MG] 100 mg PO BID 11/12/16 [History] SitaGLIPtin [Januvia] 25 mg PO DAILY 02/01/17 [History] Tramadol HCl [Ultram] 50 mg PO QID PRN 08/02/17 [History] dilTIAZem HCl [Diltiazem ER] 120 mg PO DAILY 08/02/17 [History] Acetaminophen [Tylenol Arthritis] 1 - 2 tab PO Q8H PRN 02/28/18 [History] Allergies/Adverse Reactions: Allergy/AdvReac Type Severity Reaction Status Date / Time aspirin Allergy See Verified 12/29/18 03:53 [From Darvon Compound-65] Comments caffeine Allergy See Verified 12/29/18 03:53 [From Darvon Compound-65] Comments propoxyphene [From Darvon] Allergy See Verified 12/29/18 03:53 Comments Date of admission: 03/10/19 13:23 Primary care physician: Leola Franks Consults: 03/09/19 03:59 Consult to Plastic And Reconstructive Surgeon [CONS] Routine Reason for SW Consult: Wound care. 03/09/19 10:40 Consult to Occupational Therapy [CONS] Routine Comment: Evaluate, develop and implement POC Reason for Consult: generalized weakness/fall Does patient have active BEDREST order?: No Is patient medically & hemodynamically stable?: Yes Consult to Physical Therapy [CONS] Routine Comment: Evaluate, develop and implement POC Reason for Consult: generalized weakness/fall Does patient have active BEDREST order?: No Is patient medically & hemodynamically stable?: Yes - Constitutional Vitals: Temp Pulse Resp BP Pulse Ox 98.6 F 63 16 144/79 95 03/12/19 07:00 03/12/19 07:00 03/12/19 07:00 03/12/19 07:00 03/12/19 07:00 - Patient Status Disposition: Transfer Hospital Swing Bed Condition: Fair - Discharge Instructions Follow Up With: Esthela Harris DO [Primary Care Provider] - Forms: ED Satisfaction Letter
[2019-03-13] MEDS ORDERED: *HR* Warfarin 2 MG TABLET PO SCH (18:00)
== END 2019-03-12 15:06 | disposition other institution (70) | DRG 683 ==
LOC: EMEROOPIK 22:28 → INPPIK 22:28
PROVIDERS: ADMIT Internal Medicine; ATTEND Internal Medicine

== ENCOUNTER 2019-03-12 15:14 | Inpatient (IN) ==
[2019-03-12] MEDS ORDERED: traMADol 50 MG TABLET PO PRN (15:31)
[2019-03-12] MEDS ORDERED: Acetaminophen 325 MG TABLET PO PRN (15:31)
[2019-03-12] MEDS: Furosemide 40 MG/4 ML VIAL IVP SCH (17:01)
[2019-03-12] MEDS: *HR* SitaGLIPtin 25 MG TABLET PO SCH (20:59)
[2019-03-12] MEDS: Diltiazem CD (24hr) 120 MG CAPSULE PO SCH (20:59)
[2019-03-12] MEDS ORDERED: Furosemide 40 MG TABLET PO SCH (21:00)
[2019-03-13] MEDS ORDERED: *HR* SitaGLIPtin 25 MG TABLET PO SCH (09:00)
[2019-03-13] MEDS ORDERED: Diltiazem CD (24hr) 120 MG CAPSULE PO SCH (09:00)
[2019-03-13] MEDS: Furosemide 40 MG/4 ML VIAL IVP SCH ×2 (09:25→18:08)
--- NOTE | 2019-03-13 17:28 | Internal Med Progress Note ---
Date of Encounter: 03/13/19 Time of Encounter: 17:20 - Assessment and plan (1) Weakness generalized Current Visit: No Status: Acute Assessment and plan: March 13. Continue PT/OT intervention. (2) Gout Current Visit: No Status: Acute Assessment and plan: March 13. Uric acid level 5.6 on 01/14/2019. Continue allopurinol Qualifiers: Gout site: unspecified site Gout etiology: unspecified cause Chronicity: chronic Presence of tophus: without tophus Qualified Code(s): M1A.9XX0 - Chronic gout, unspecified, without tophus (tophi) (3) Edema Current Visit: No Status: Acute Assessment and plan: March 13. Continue IV Lasix Qualifiers: Edema type: unspecified Qualified Code(s): R60.9 - Edema, unspecified (4) JAC (acute kidney injury) Current Visit: No Status: Acute Assessment and plan: March 13. Recheck labs in a.m. (5) CKD (chronic kidney disease) Current Visit: No Status: Chronic Assessment and plan: March 13. Recheck labs in a.m. Qualifiers: Chronic kidney disease stage: stage 3 (moderate) Qualified Code(s): N18.3 - Chronic kidney disease, stage 3 (moderate) (6) Diabetes mellitus Current Visit: No Status: Chronic Assessment and plan: March 13. Hemoglobin A1c was 6.0% on 09/13/2018. Continue Januvia and Accu-Cheks with SSI. Qualifiers: Diabetes mellitus type: type 2 Diabetes mellitus fdc insulin use: without fdc use Diabetes mellitus complication status: with neurologic complications Diabetes mellitus complication detail: with polyneuropathy Qualified Code(s): E11.42 - Type 2 diabetes mellitus with diabetic polyneuropathy (7) Afib Current Visit: No Status: Chronic Assessment and plan: March 13. Status post pacemaker placement. Continue Coumadin. Check INR in a.m. Qualifiers: Atrial fibrillation type: paroxysmal Qualified Code(s): I48.0 - Paroxysmal atrial fibrillation (8) HTN (hypertension) Current Visit: No Status: Chronic Assessment and plan: March 13. Continue Lopressor, Cardizem, and Lasix Qualifiers: Hypertension type: essential hypertension Qualified Code(s): I10 - Essential (primary) hypertension (9) Anemia Current Visit: No Status: Acute Assessment and plan: March 13. Anemia testing 01/14/2019 showed iron 116, transferrin saturation 30%, transferrin 79, ferritin 37, B12 500, and folate 19.0. Anemia likely due to chronic kidney disease. Monitor CBC. Qualifiers: Anemia type: iron deficiency Iron deficiency anemia type: unspecified iron deficiency Qualified Code(s): D50.9 - Iron deficiency anemia, unspecified - Subjective Interval history: March 13. She was hospitalized in [facility] acute-care March 09- after a fall at home with left face/head contusion. She had significant leg edema and was given IV Lasix. PT/OT intervention was done and it was felt she would benefit from ongoing care in swing bed. She has no new complaints today. - Constitutional Vitals: Temp Pulse Resp BP Pulse Ox 98.2 F 63 17 163/83 97 03/13/19 07:00 03/13/19 07:00 03/13/19 07:00 03/13/19 07:00 03/13/19 07:00 Exam: She is resting comfortably in a chair at bedside and appears in no acute distress. Lower leg edema is unchanged. The left lower leg has gauze wrap over a shallow ulcer which I did not remove. Her affect is overall cheerful. I reviewed her medications and lab results. Consult Discharge Plan - Plan Referrals: Esthela Harris DO [Primary Care Provider] - 1 week
[2019-03-13] MEDS: *HR* Warfarin 3 MG TABLET PO SCH (18:08)
[2019-03-13] MEDS: Diltiazem CD (24hr) 120 MG CAPSULE PO SCH (20:26)
[2019-03-13] MEDS: *HR* SitaGLIPtin 25 MG TABLET PO SCH (20:26)
[2019-03-14 06:59] LABS: Basophils # 0.1 K/mcL (0.0-0.2); Basophils % 0.6 %; Eosinophils # 0.2 K/mcL (0.0-0.6); Eosinophils % 1.9 %; Hematocrit 30.7 % (35.3-44.9); Hemoglobin 10.1 g/dL (11.5-15.4); Immature Granulocytes % 0.3 % (0-4); Lymphocytes # 1.7 K/mcL (0.6-4.6); Lymphocytes % 22.4 %; Mean Corpuscular HGB Conc 32.9 g/dL (31.6-35.5); Mean Corpuscular Hemoglobin 30.5 pg (28.0-33.3); Mean Corpuscular Volume 92.7 fL (83.0-100.0); Mean Platelet Volume 9.1 fL (9.4-12.4); Monocytes # 1.1 K/mcL (0.0-1.3); Monocytes % 14.5 %; Neutrophils # 4.7 K/mcL (1.6-8.9); Platelet Count 209 K/mcL (140-400); Red Blood Count 3.31 M/mcL (3.82-4.97); Red Cell Distribution Width 14.9 % (11.5-14.5); Segmented Neutrophils % 60.3 %; White Blood Count 7.8 K/mcL (4.3-11.1)
[2019-03-14 07:07] LABS: INR 1.5; Prothrombin Time 17.3 Seconds (9.4-12.1)
[2019-03-14 07:17] LABS: Calcium 8.7 mg/dL (8.6-10.3); Potassium 3.4 mEq/L (3.5-5.1)
[2019-03-14] MEDS: Furosemide 40 MG/4 ML VIAL IVP SCH ×2 (09:07→17:54)
[2019-03-14] MEDS: *HR* Warfarin 3 MG TABLET PO SCH (17:53)
[2019-03-14] MEDS: Diltiazem CD (24hr) 120 MG CAPSULE PO SCH (20:57)
[2019-03-14] MEDS: *HR* SitaGLIPtin 25 MG TABLET PO SCH (20:58)
[2019-03-15] MEDS: Furosemide 40 MG/4 ML VIAL IVP SCH ×2 (07:46→17:34)
--- NOTE | 2019-03-15 10:12 | Internal Med Progress Note ---
Date of Encounter: 03/15/19 Time of Encounter: 10:05 - Assessment and plan (1) Weakness generalized Current Visit: No Status: Acute Assessment and plan: March 13. Continue PT/OT intervention. (2) Gout Current Visit: No Status: Acute Assessment and plan: March 13. Uric acid level 5.6 on 01/14/2019. Continue allopurinol Qualifiers: Gout site: unspecified site Gout etiology: unspecified cause Chronicity: chronic Presence of tophus: without tophus Qualified Code(s): M1A.9XX0 - Chronic gout, unspecified, without tophus (tophi) (3) Edema Current Visit: No Status: Acute Assessment and plan: March 13. Continue IV Lasix Qualifiers: Edema type: unspecified Qualified Code(s): R60.9 - Edema, unspecified (4) JAC (acute kidney injury) Current Visit: No Status: Acute Assessment and plan: March 13. Recheck labs in a.m. March 15. BUN and creatinine minimally changed at 32 and 2.00 respectively with estimated GFR 24. Continue present Rx and monitor labs. (5) CKD (chronic kidney disease) Current Visit: No Status: Chronic Assessment and plan: March 13. Recheck labs in a.m. March 15. As above Qualifiers: Chronic kidney disease stage: stage 3 (moderate) Qualified Code(s): N18.3 - Chronic kidney disease, stage 3 (moderate) (6) Diabetes mellitus Current Visit: No Status: Chronic Assessment and plan: March 13. Hemoglobin A1c was 6.0% on 09/13/2018. Continue Januvia and Accu-Cheks with SSI. Qualifiers: Diabetes mellitus type: type 2 Diabetes mellitus nursing home insulin use: without nursing home use Diabetes mellitus complication status: with neurologic complications Diabetes mellitus complication detail: with polyneuropathy Qu alified Code(s): E11.42 - Type 2 diabetes mellitus with diabetic polyneuropathy (7) Afib Current Visit: No Status: Chronic Assessment and plan: March 13. Status post pacemaker placement. Continue Coumadin. Check INR in a.m. March 15. Recheck INR in a.m. Qualifiers: Atrial fibrillation type: paroxysmal Qualified Code(s): I48.0 - Paroxysmal atrial fibrillation (8) HTN (hypertension) Current Visit: No Status: Chronic Assessment and plan: March 13. Continue Lopressor, Cardizem, and Lasix Qualifiers: Hypertension type: essential hypertension Qualified Code(s): I10 - Essential (primary) hypertension (9) Anemia Current Visit: No Status: Acute Assessment and plan: March 13. Anemia testing 01/14/2019 showed iron 116, transferrin saturation 30%, transferrin 79, ferritin 37, B12 500, and folate 19.0. Anemia likely due to chronic kidney disease. Monitor CBC. Qualifiers: Anemia type: iron deficiency Iron deficiency anemia type: unspecified iron deficiency Qualified Code(s): D50.9 - Iron deficiency anemia, unspecified - Subjective Interval history: March 13. She was hospitalized in [facility] acute-care March 09- after a f all at home with left face/head contusion. She had significant leg edema and was given IV Lasix. PT/OT intervention was done and it was felt she would benefit from ongoing care in swing bed. She has no new complaints today. March 15. She has no new complaints. - Constitutional Vitals: Temp Pulse Resp BP Pulse Ox 97.9 F 66 14 154/64 95 03/15/19 06:48 03/15/19 06:48 03/15/19 06:48 03/15/19 06:48 03/15/19 06:48 Exam: She has decreased edema in her lower legs. Her affect is bright and cheerful. I reviewed her medications and lab results. Internal Medicine: Result - Labs CBC & Chem 7: 03/14/19 06:48 03/14/19 06:48 - ABG Interpretation ABG results: PT/INR, D-dimer PT 17.3 Seconds (9.4-12.1) H D 03/14/19 06:48 Consult Discharge Plan - Plan Referrals: Esthela Harris DO [Primary Care Provider] - 1 week
[2019-03-15] MEDS: Ammonium Lactate 30 APPL/225 GM BOTTLE TP SCH (14:21)
[2019-03-15] MEDS: *HR* Warfarin 3 MG TABLET PO SCH (17:34)
[2019-03-15] MEDS: *HR* SitaGLIPtin 25 MG TABLET PO SCH (19:41)
[2019-03-15] MEDS: Diltiazem CD (24hr) 120 MG CAPSULE PO SCH (19:41)
[2019-03-16 07:38] LABS: Basophils # 0.1 K/mcL (0.0-0.2); Basophils % 0.9 %; Eosinophils # 0.2 K/mcL (0.0-0.6); Eosinophils % 2.9 %; Hematocrit 28.9 % (35.3-44.9); Hemoglobin 9.7 g/dL (11.5-15.4); Immature Granulocytes % 0.3 % (0-4); Lymphocytes # 2.1 K/mcL (0.6-4.6); Lymphocytes % 30.6 %; Mean Corpuscular HGB Conc 33.6 g/dL (31.6-35.5); Mean Corpuscular Hemoglobin 31.8 pg (28.0-33.3); Mean Corpuscular Volume 94.8 fL (83.0-100.0); Mean Platelet Volume 9.7 fL (9.4-12.4); Monocytes % 14.5 %; Neutrophils # 3.5 K/mcL (1.6-8.9); Platelet Count 209 K/mcL (140-400); Red Blood Count 3.05 M/mcL (3.82-4.97); Red Cell Distribution Width 14.7 % (11.5-14.5); Segmented Neutrophils % 50.8 %; White Blood Count 6.8 K/mcL (4.3-11.1)
[2019-03-16 07:58] LABS: Calcium 8.5 mg/dL (8.6-10.3); INR 1.5; Potassium 3.6 mEq/L (3.5-5.1); Prothrombin Time 16.7 Seconds (9.4-12.1)
[2019-03-16] MEDS: Furosemide 40 MG/4 ML VIAL IVP SCH ×2 (08:34→18:11)
[2019-03-16] MEDS: Ammonium Lactate 30 APPL/225 GM BOTTLE TP SCH (10:27)
[2019-03-16] MEDS: *HR* Warfarin 3 MG TABLET PO SCH (18:11)
[2019-03-16] MEDS: *HR* SitaGLIPtin 25 MG TABLET PO SCH (20:48)
[2019-03-16] MEDS: Diltiazem CD (24hr) 120 MG CAPSULE PO SCH (20:52)
[2019-03-17] MEDS: Furosemide 40 MG/4 ML VIAL IVP SCH ×2 (09:47→18:22)
[2019-03-17] MEDS: Ammonium Lactate 30 APPL/225 GM BOTTLE TP SCH (09:48)
--- NOTE | 2019-03-17 14:53 | Internal Med Progress Note ---
Date of Encounter: 03/17/19 Time of Encounter: 14:45 - Assessment and plan (1) Weakness generalized Current Visit: No Status: Acute Assessment and plan: March 13. Continue PT/OT intervention. (2) Gout Current Visit: No Status: Acute Assessment and plan: March 13. Uric acid level 5.6 on 01/14/2019. Continue allopurinol Qualifiers: Gout site: unspecified site Gout etiology: unspecified cause Chronicity: chronic Presence of tophus: without tophus Qualified Code(s): M1A.9XX0 - Chronic gout, unspecified, without tophus (tophi) (3) Edema Current Visit: No Status: Acute Assessment and plan: March 13. Continue IV Lasix March 17. Weight has decreased from 100.471 kg on 03/08/2019 to 93.894 kg now. Continue present Rx. Qualifiers: Edema type: unspecified Qualified Code(s): R60.9 - Edema, unspecified (4) JAC (acute kidney injury) Current Visit: No Status: Acute Assessment and plan: March 13. Recheck labs in a.m. March 15. BUN and creatinine minimally changed at 32 and 2.00 respectively with estimated GFR 24. Continue present Rx and monitor labs. (5) CKD (chronic kidney disease) Current Visit: No Status: Chronic Assessment and plan: March 13. Recheck labs in a.m. March 15. As above Qualifiers: Chronic kidney disease stage: stage 3 (moderate) Qualified Code(s): N18.3 - Chronic kidney disease, stage 3 (moderate) (6) Diabetes mellitus Current Visit: No Status: Chronic Assessment and plan: March 13. Hemoglobin A1c was 6.0% on 09/13/2018. Continue Januvia and Accu-Cheks with SSI. Qualifiers: Diabetes mellitus type: type 2 Diabetes mellitus correction insulin use: without long term care social worker use Diabetes mellitus complication status: with neurologic complications Diabetes mellitus complication detail: with polyneuropathy Qualified Code(s): E11.42 - Type 2 diabetes mellitus with diabetic polyneuropathy (7) Afib Current Visit: No Status: Chronic Assessment and plan: March 13. Status post pacemaker placement. Continue Coumadin. Check INR in a.m. March 15. Recheck INR in a.m. March 17. Check INR in a.m. Qualifiers: Atrial fibrillation type: paroxysmal Qualified Code(s): I48.0 - Paroxysmal atrial fibrillation (8) HTN (hypertension) Current Visit: No Status: Chronic Assessment and plan: March 13. Continue Lopressor, Cardizem, and Lasix Qualifiers: Hypertension type: essential hypertension Qualified Code(s): I10 - Essential (primary) hypertension (9) Anemia Current Visit: No Status: Acute Assessment and plan: March 13. Anemia testing 01/14/2019 showed iron 116, transferrin saturation 30%, transferrin 79, ferritin 37, B12 500, and folate 19.0. Anemia likely due to chronic kidney disease. Monitor CBC. Qualifiers: Anemia type: iron deficiency Iron deficiency anemia type: unspecified iron deficiency Qualified Code(s): D50.9 - Iron deficiency anemia, unspecified - Subjective Interval history: March 13. She was hospitalized in [facility] acute-care March 09 after a fall at home with left face/head contusion. She had significant leg edema and was given IV Lasix. PT/OT intervention was done and it was felt she would benefit from ongoing care in swing bed. She has no new complaints today. March 15. She has no new complaints. March 17. She has no new complaints. She is pleased with decreased leg edema. - Constitutional Vitals: Temp Pulse Resp BP Pulse Ox 98.2 F 81 16 148/78 95 03/17/19 06:24 03/17/19 06:24 03/17/19 06:24 03/17/19 06:24 03/17/19 06:24 Exam: She is resting comfortably in bed and appears in no acute distress. Her affect is cheerful. Extremities show trace pitting edema of her lower legs bila terally. I reviewed her medications and lab results. Internal Medicine: Result - Labs CBC & Chem 7: 03/16/19 07:11 03/16/19 07:11 - ABG Interpretation ABG results: PT/INR, D-dimer PT 16.7 Seconds (9.4-12.1) H 03/16/19 07:11 Consult Discharge Plan - Plan Referrals: Esthela Harris DO [Primary Care Provider] - 1 week
[2019-03-17] MEDS: *HR* Warfarin 3 MG TABLET PO SCH (18:22)
[2019-03-17] MEDS: *HR* SitaGLIPtin 25 MG TABLET PO SCH (20:49)
[2019-03-17] MEDS: Diltiazem CD (24hr) 120 MG CAPSULE PO SCH (20:50)
[2019-03-18 06:49] LABS: Basophils # 0.1 K/mcL (0.0-0.2); Basophils % 0.8 %; Eosinophils # 0.2 K/mcL (0.0-0.6); Eosinophils % 2.9 %; Hematocrit 30.6 % (35.3-44.9); Immature Granulocytes % 0.4 % (0-4); Lymphocytes # 2.2 K/mcL (0.6-4.6); Lymphocytes % 28.5 %; Mean Corpuscular HGB Conc 32.7 g/dL (31.6-35.5); Mean Corpuscular Hemoglobin 30.1 pg (28.0-33.3); Mean Corpuscular Volume 92.2 fL (83.0-100.0); Mean Platelet Volume 9.5 fL (9.4-12.4); Monocytes % 12.3 %; Neutrophils # 4.3 K/mcL (1.6-8.9); Platelet Count 227 K/mcL (140-400); Red Blood Count 3.32 M/mcL (3.82-4.97); Red Cell Distribution Width 14.4 % (11.5-14.5); Segmented Neutrophils % 55.1 %; White Blood Count 7.9 K/mcL (4.3-11.1)
[2019-03-18 07:39] LABS: INR 1.4; Prothrombin Time 15.8 Seconds (9.4-12.1)
[2019-03-18 08:50] LABS: Calcium 8.7 mg/dL (8.6-10.3); Potassium 3.5 mEq/L (3.5-5.1)
[2019-03-18] MEDS: Furosemide 40 MG/4 ML VIAL IVP SCH ×2 (09:39→18:15)
[2019-03-18] MEDS: Ammonium Lactate 30 APPL/225 GM BOTTLE TP SCH (09:40)
[2019-03-18] MEDS: *HR* Warfarin 3 MG TABLET PO SCH (16:56)
[2019-03-18] MEDS: *HR* SitaGLIPtin 25 MG TABLET PO SCH (20:11)
[2019-03-18] MEDS: Diltiazem CD (24hr) 120 MG CAPSULE PO SCH (21:33)
[2019-03-19] MEDS: Furosemide 40 MG/4 ML VIAL IVP SCH ×2 (10:05→17:17)
[2019-03-19] MEDS: Ammonium Lactate 30 APPL/225 GM BOTTLE TP SCH (10:05)
[2019-03-19] MEDS: *HR* Warfarin 3 MG TABLET PO SCH (17:17)
[2019-03-19] MEDS: *HR* SitaGLIPtin 25 MG TABLET PO SCH (20:52)
[2019-03-19] MEDS: Diltiazem CD (24hr) 120 MG CAPSULE PO SCH (20:52)
[2019-03-20] MEDS: Furosemide 40 MG/4 ML VIAL IVP SCH (09:01)
--- NOTE | 2019-03-20 11:10 | Discharge Summary ---
Date of Encounter: 03/20/19 Time of Encounter: 10:58 - Discharge Diagnosis (1) Weakness generalized Priority: Primary Status: Acute (2) Gout Priority: Secondary Status: Acute Qualifiers: Gout site: unspecified site Gout etiology: unspecified cause Chronicity: chronic Presence of tophus: without tophus Qualified Code(s): M1A.9XX0 - Chronic gout, unspecified, without tophus (tophi) (3) Edema Priority: Secondary Status: Acute Qualifiers: Edema type: unspecified Qualified Code(s): R60.9 - Edema, unspecified (4) JAC (acute kidney injury) Priority: Secondary Status: Acute (5) CKD (chronic kidney disease) Priority: Secondary Status: Chronic Qualifiers: Chronic kidney disease stage: stage 3 (moderate) Qualified Code(s): N18.3 - Chronic kidney disease, stage 3 (moderate) (6) Diabetes mellitus Priority: Secondary Status: Chronic Qualifiers: Diabetes mellitus type: type 2 Diabetes mellitus intermediate project manager insulin use: without retirement use Diabetes mellitus complication status: with neurologic complications Diabetes mellitus complication detail: with polyneuropathy Qualified Code(s): E11.42 - Type 2 diabetes mellitus with diabetic polyneuropathy (7) Afib Priority: Secondary Status: Chronic Qualifiers: Atrial fibrillation type: paroxysmal Qualified Code(s): I48.0 - Paroxysmal atrial fibrillation (8) HTN (hypertension) Priority: Secondary Status: Chronic Qualifiers: Hypertension type: essential hypertension Qualified Code(s): I10 - Essential (primary) hypertension (9) Anemia Priority: Secondary Status: Acute Qualifiers: Anemia type: iron deficiency Iron deficiency anemia type: unspecified iron deficiency Qualified Code(s): D50.9 - Iron deficiency anemia, unspecified Hospital course: Ms. Wallace is a 84 year old female who was hospitalized in [facility] acute-care March 09- after a fall at home with left face/head contusion. She had significant leg edema and was given IV Lasix. PT/OT intervention was done and it was felt she would benefit from ongoing care in swing bed. She had ongoing PT and OT in swing bed and made satisfactory progress. IV Lasix was continued. She had good diuresis with weight decreasing from 100.471 kg on 03/08/2019 to 93.894 kg on March 15. She will continue with oral Bumex at discharge 1 mg daily. Her PCP can monitor renal indices. She was maintained on Coumadin for underlying atrial fibrillation. Her PCP can monitor PT/INR. Blood pressure remained satisfactory on Lopressor, Cardizem, and diuretics. On March 20 she was stable for discharge home. She will follow with her PCP Dr. Esthela Harris within 1 week. She will have outpatient PT/OT. - Time Spent with Patient Total time spent providing and/or coordinating discharge services: - Discharge Medications Prescriptions: New Bumetanide 1 mg PO DAILY #30 tablet Continued Warfarin [Coumadin] 3 mg PO AD Propafenone [Rhythmol] 150 mg PO TID Metoprolol [Lopressor] 100 mg PO BID SitaGLIPtin [Januvia] 25 mg PO DAILY Tramadol HCl [Ultram] 50 mg PO QID PRN PRN Reason: Pain dilTIAZem HCl [Diltiazem 24Hr ER (Xr)] 120 mg PO DAILY Acetaminophen [Tylenol Arthritis] 1 - 2 tab PO Q8H PRN PRN Reason: Pain Allopurinol [Zyloprim 100 MG] 100 mg PO BID Discontinued Furosemide [Lasix] 40 mg PO BID Home Medications: Metoprolol [Lopressor] 100 mg PO BID 05/01/15 [History] Propafenone [Rhythmol] 150 mg PO TID 05/01/15 [History] Warfarin [Coumadin] 3 mg PO AD 05/01/15 [History] Allopurinol [Zyloprim 100 MG] 100 mg PO BID 11/12/16 [History] SitaGLIPtin [Januvia] 25 mg PO DAILY 02/01/17 [History] Tramadol HCl [Ultram] 50 mg PO QID PRN 08/02/17 [History] dilTIAZem HCl [Diltiazem 24Hr ER (Xr)] 120 mg PO DAILY 08/02/17 [History] Acetaminophen [Tylenol Arthritis] 1 - 2 tab PO Q8H PRN 02/28/18 [History] Bumetanide 1 mg PO DAILY #30 tablet 03/20/19 [Rx] Allergies/Adverse Reactions: Allergy/AdvReac Type Severity Reaction Status Date / Time aspirin Allergy See Verified 12/29/18 03:53 [From Darvon Compound-65] Comments caffeine Allergy See Verified 12/29/18 03:53 [From Darvon Compound-65] Comments propoxyphene [From Darvon] Allergy See Verified 12/29/18 03:53 Comments Date of admission: 03/12/19 15:45 Primary care physician: Leola Franks Consults: 03/12/19 15:19 Consult to Occupational Therapy [CONS] Routine Comment: Evaluate, develop and implement POC Reason for Consult: Evaluate, develop and implement POC Does patient have active BEDREST order?: No Is patient medically & hemodynamically stable?: Yes Patient assessed for mobility or mobilized this visit?: No Consult to Physical Therapy [CONS] Routine Comment: Evaluate, develop and implement POC Reason for Consult: Evaluate, develop and implement POC Does patient have active BEDREST order?: No Is patient medically & hemodynamically stable?: Yes Patient assessed for mobility or mobilized this visit?: No - Constitutional Vitals: Temp Pulse Resp BP Pulse Ox 98.2 F 70 17 140/62 95 03/20/19 07:08 03/20/19 07:08 03/20/19 07:08 03/20/19 07:08 03/20/19 07:08 - Patient Status Disposition: Home, Self-Care - Discharge Instructions Follow Up With: Esthela Harris DO [Primary Care Provider] - 1 week - Diet and Activity Activity: as per physical therapy Diet: diabetic diet
[2019-03-20 19:00] VITALS: BP 99/60
== END 2019-03-20 14:35 | disposition home or self-care (01) | DRG 945 ==
LOC: INPPIK 15:45
PROVIDERS: ADMIT Internal Medicine; ATTEND Internal Medicine

== ENCOUNTER 2019-09-18 17:55 | Inpatient (IN) ==
[2019-09-18] MEDS ORDERED: Acetaminophen 325 MG TABLET PO PRN (21:58)
[2019-09-18] MEDS ORDERED: *HR* Dextrose 50 % in Water (Vial) 50 ML VIAL IVP PRN (22:16)
[2019-09-18] MEDS ORDERED: D5% in Water 1,000 ML IVC PRN (22:16)
[2019-09-18] MEDS ORDERED: Dextrose Gel 15 GM/37.5 ML TUBE PO PRN ×2 (22:16)
[2019-09-19] MEDS ORDERED: Ampicillin 2 GM in 0.9 % Sodium Chloride Mini Bag 100 ML IVPB ONE (01:28)
[2019-09-19] MEDS: Insulin LISPRO 300 UNITS/3 ML VIAL SQ SCH ×4 (07:55→20:45)
[2019-09-19 08:12] LABS: INR 1.4; Prothrombin Time 15.9 Seconds (9.4-12.1)
[2019-09-19] MEDS: Bumetanide 1 MG TABLET PO SCH (09:37)
[2019-09-19] MEDS: *HR* SitaGLIPtin 25 MG TABLET PO SCH (09:38)
[2019-09-19] MEDS: DilTIAZem CD (24hr) 120 MG CAP.ER.24H PO SCH (09:38)
[2019-09-19 16:18] LABS: Hematocrit 28.7 % (35.3-44.9); Hemoglobin 9.5 g/dL (11.5-15.4); Mean Corpuscular HGB Conc 33.1 g/dL (31.6-35.5); Mean Corpuscular Hemoglobin 30.9 pg (28.0-33.3); Mean Corpuscular Volume 93.5 fL (83.0-100.0); Mean Platelet Volume 8.9 fL (9.4-12.4); Platelet Count 380 K/mcL (140-400); Red Blood Count 3.07 M/mcL (3.82-4.97); Red Cell Distribution Width 15.3 % (11.5-14.5); White Blood Count 15.6 K/mcL (4.3-11.1)
[2019-09-19 16:36] LABS: Calcium 8.7 mg/dL (8.6-10.3); Potassium 3.7 mEq/L (3.5-5.1); Uric Acid 4.4 mg/dL (2.3-7.6)
[2019-09-19] MEDS: Ampicillin 2 GM in 0.9 % Sodium Chloride Mini Bag 100 ML IVPB SCH (17:00)
[2019-09-19] MEDS: Colchicine 0.6 MG TABLET PO SCH ×2 (17:00→20:45)
[2019-09-19] MEDS: predniSONE 20 MG TABLET PO SCH (17:00)
[2019-09-19] MEDS ORDERED: *HR* Warfarin 3 MG TABLET PO SCH (18:00)
[2019-09-19] MEDS ORDERED: *HR* Warfarin 3 MG TABLET PO ONE (18:00)
[2019-09-19] MEDS ORDERED: Warfarin perPT PO PRN (18:00)
[2019-09-20] MEDS: Ampicillin 2 GM in 0.9 % Sodium Chloride Mini Bag 100 ML IVPB SCH ×2 (05:27→16:55)
[2019-09-20 07:26] LABS: Prothrombin Time 15.3 Seconds (9.4-12.1)
[2019-09-20 07:27] LABS: INR 1.3
[2019-09-20] MEDS: Bumetanide 1 MG TABLET PO SCH (08:33)
[2019-09-20] MEDS: Insulin LISPRO 300 UNITS/3 ML VIAL SQ SCH ×4 (08:33→22:30)
[2019-09-20] MEDS: Colchicine 0.6 MG TABLET PO SCH ×2 (08:33→22:30)
[2019-09-20] MEDS: *HR* SitaGLIPtin 25 MG TABLET PO SCH (08:33)
[2019-09-20] MEDS: predniSONE 20 MG TABLET PO SCH (08:34)
[2019-09-20] MEDS: DilTIAZem CD (24hr) 120 MG CAP.ER.24H PO SCH (08:34)
[2019-09-20] MEDS ORDERED: *HR* Warfarin 5 MG TABLET PO ONE (18:00)
[2019-09-21] MEDS: Ampicillin 2 GM in 0.9 % Sodium Chloride Mini Bag 100 ML IVPB SCH ×2 (05:48→16:44)
[2019-09-21] MEDS: *HR* SitaGLIPtin 25 MG TABLET PO SCH (09:37)
[2019-09-21] MEDS: Bumetanide 1 MG TABLET PO SCH (09:37)
[2019-09-21] MEDS: predniSONE 20 MG TABLET PO SCH (09:37)
[2019-09-21] MEDS: DilTIAZem CD (24hr) 120 MG CAP.ER.24H PO SCH (09:37)
[2019-09-21] MEDS: Insulin LISPRO 300 UNITS/3 ML VIAL SQ SCH ×4 (09:44→20:53)
[2019-09-21] MEDS ORDERED: *HR* Warfarin 3 MG TABLET PO ONE (18:00)
[2019-09-22] MEDS: Ampicillin 2 GM in 0.9 % Sodium Chloride Mini Bag 100 ML IVPB SCH ×2 (06:32→17:21)
[2019-09-22] MEDS: predniSONE 20 MG TABLET PO SCH (07:54)
[2019-09-22] MEDS: *HR* SitaGLIPtin 25 MG TABLET PO SCH (07:54)
[2019-09-22] MEDS: DilTIAZem CD (24hr) 120 MG CAP.ER.24H PO SCH (07:55)
[2019-09-22] MEDS: Bumetanide 1 MG TABLET PO SCH (07:55)
[2019-09-22] MEDS: Insulin LISPRO 300 UNITS/3 ML VIAL SQ SCH ×4 (07:57→21:58)
[2019-09-22 08:01] LABS: INR 1.4; Prothrombin Time 15.8 Seconds (9.4-12.1)
[2019-09-22] MEDS ORDERED: *HR* Warfarin 5 MG TABLET PO ONE (18:00)
[2019-09-23] MEDS: Ampicillin 2 GM in 0.9 % Sodium Chloride Mini Bag 100 ML IVPB SCH ×2 (06:53→17:17)
[2019-09-23 07:09] LABS: Basophils % 0.1 %; Eosinophils % 0.1 %; Hematocrit 28.9 % (35.3-44.9); Hemoglobin 9.5 g/dL (11.5-15.4); Immature Granulocytes % 0.8 % (0-4); Lymphocytes # 1.6 K/mcL (0.6-4.6); Lymphocytes % 12.3 %; Mean Corpuscular HGB Conc 32.9 g/dL (31.6-35.5); Mean Corpuscular Hemoglobin 31.1 pg (28.0-33.3); Mean Corpuscular Volume 94.8 fL (83.0-100.0); Mean Platelet Volume 9.3 fL (9.4-12.4); Monocytes # 1.2 K/mcL (0.0-1.3); Monocytes % 9.3 %; Neutrophils # 9.8 K/mcL (1.6-8.9); Platelet Count 415 K/mcL (140-400); Red Blood Count 3.05 M/mcL (3.82-4.97); Segmented Neutrophils % 77.4 %; White Blood Count 12.6 K/mcL (4.3-11.1)
[2019-09-23 07:27] LABS: BUN/Creatinine Ratio 29 (6-26); Blood Urea Nitrogen 54 mg/dL (8-23); eGFR For African Americans 31 (> 60); eGFR For Non-African Americans 26 (> 60)
[2019-09-23 07:32] LABS: Prothrombin Time 17.2 Seconds (9.4-12.1)
[2019-09-23 07:34] LABS: INR 1.5
[2019-09-23] MEDS: Insulin LISPRO 300 UNITS/3 ML VIAL SQ SCH ×4 (08:06→21:01)
[2019-09-23] MEDS: predniSONE 20 MG TABLET PO SCH (09:17)
[2019-09-23] MEDS: Bumetanide 1 MG TABLET PO SCH (09:18)
[2019-09-23] MEDS: *HR* SitaGLIPtin 25 MG TABLET PO SCH (09:18)
[2019-09-23] MEDS: DilTIAZem CD (24hr) 120 MG CAP.ER.24H PO SCH (09:18)
[2019-09-23 11:03] LABS: C-Reactive Protein 32 mg/L (Less than 10)
[2019-09-23] MEDS ORDERED: *HR* Warfarin 3 MG TABLET PO ONE (18:00)
[2019-09-24] MEDS: Ampicillin 2 GM in 0.9 % Sodium Chloride Mini Bag 100 ML IVPB SCH ×2 (06:18→16:46)
[2019-09-24 06:48] LABS: INR 1.7; Prothrombin Time 19.3 Seconds (9.4-12.1)
[2019-09-24] MEDS: Bumetanide 1 MG TABLET PO SCH (08:59)
[2019-09-24] MEDS: *HR* SitaGLIPtin 25 MG TABLET PO SCH (08:59)
[2019-09-24] MEDS: predniSONE 20 MG TABLET PO SCH (08:59)
[2019-09-24] MEDS: DilTIAZem CD (24hr) 120 MG CAP.ER.24H PO SCH (08:59)
[2019-09-24] MEDS: Insulin LISPRO 300 UNITS/3 ML VIAL SQ SCH ×4 (09:00→20:02)
[2019-09-24] MEDS ORDERED: *HR* Warfarin 5 MG TABLET PO ONE (18:00)
[2019-09-25] MEDS: Ampicillin 2 GM in 0.9 % Sodium Chloride Mini Bag 100 ML IVPB SCH ×2 (06:02→16:40)
[2019-09-25 06:30] LABS: INR 1.9; Prothrombin Time 21.2 Seconds (9.4-12.1)
[2019-09-25] MEDS: DilTIAZem CD (24hr) 120 MG CAP.ER.24H PO SCH (08:34)
[2019-09-25] MEDS: *HR* SitaGLIPtin 25 MG TABLET PO SCH (08:34)
[2019-09-25] MEDS: Bumetanide 1 MG TABLET PO SCH (08:34)
[2019-09-25] MEDS: Insulin LISPRO 300 UNITS/3 ML VIAL SQ SCH ×3 (13:33→21:23)
[2019-09-25] MEDS ORDERED: *HR* Warfarin 5 MG TABLET PO ONE (18:00)
[2019-09-26 06:12] LABS: Hematocrit 30.2 % (35.3-44.9); Hemoglobin 9.8 g/dL (11.5-15.4); Mean Corpuscular HGB Conc 32.5 g/dL (31.6-35.5); Mean Corpuscular Volume 92.4 fL (83.0-100.0); Mean Platelet Volume 8.9 fL (9.4-12.4); Platelet Count 320 K/mcL (140-400); Red Blood Count 3.27 M/mcL (3.82-4.97); Red Cell Distribution Width 15.1 % (11.5-14.5); White Blood Count 10.7 K/mcL (4.3-11.1)
[2019-09-26 06:27] LABS: Prothrombin Time 22.7 Seconds (9.4-12.1)
[2019-09-26 06:31] LABS: Calcium 8.5 mg/dL (8.6-10.3); Potassium 3.8 mEq/L (3.5-5.1)
[2019-09-26] MEDS: Ampicillin 2 GM in 0.9 % Sodium Chloride Mini Bag 100 ML IVPB SCH ×2 (06:41→17:13)
[2019-09-26] MEDS: Insulin LISPRO 300 UNITS/3 ML VIAL SQ SCH ×4 (08:09→20:46)
[2019-09-26] MEDS: DilTIAZem CD (24hr) 120 MG CAP.ER.24H PO SCH (08:10)
[2019-09-26] MEDS: *HR* SitaGLIPtin 25 MG TABLET PO SCH (08:11)
[2019-09-26] MEDS: Bumetanide 1 MG TABLET PO SCH (08:11)
[2019-09-26] MEDS ORDERED: *HR* Warfarin 5 MG TABLET PO ONE (18:00)
[2019-09-27 06:11] LABS: INR 2.4
[2019-09-27] MEDS: Ampicillin 2 GM in 0.9 % Sodium Chloride Mini Bag 100 ML IVPB SCH ×2 (06:53→18:14)
[2019-09-27] MEDS: Insulin LISPRO 300 UNITS/3 ML VIAL SQ SCH ×4 (07:20→20:57)
[2019-09-27] MEDS: *HR* SitaGLIPtin 25 MG TABLET PO SCH (09:16)
[2019-09-27] MEDS: DilTIAZem CD (24hr) 120 MG CAP.ER.24H PO SCH (09:16)
[2019-09-27] MEDS: Bumetanide 1 MG TABLET PO SCH (09:16)
[2019-09-27] MEDS ORDERED: *HR* Warfarin 2 MG TABLET PO ONE (18:00)
[2019-09-28] MEDS: Ampicillin 2 GM in 0.9 % Sodium Chloride Mini Bag 100 ML IVPB SCH ×2 (06:24→16:41)
[2019-09-28 08:39] LABS: INR 2.6
[2019-09-28 08:40] LABS: Prothrombin Time 29.9 Seconds (9.4-12.1)
[2019-09-28] MEDS: Bumetanide 1 MG TABLET PO SCH (09:58)
[2019-09-28] MEDS: Insulin LISPRO 300 UNITS/3 ML VIAL SQ SCH ×4 (09:59→20:14)
[2019-09-28] MEDS: *HR* SitaGLIPtin 25 MG TABLET PO SCH (09:59)
[2019-09-28] MEDS: DilTIAZem CD (24hr) 120 MG CAP.ER.24H PO SCH (09:59)
[2019-09-28] MEDS ORDERED: *HR* Warfarin 3 MG TABLET PO ONE (18:00)
[2019-09-29] MEDS: Ampicillin 2 GM in 0.9 % Sodium Chloride Mini Bag 100 ML IVPB SCH ×2 (06:43→18:14)
[2019-09-29] MEDS: Insulin LISPRO 300 UNITS/3 ML VIAL SQ SCH ×4 (07:27→19:48)
[2019-09-29 07:31] LABS: INR 2.8; Prothrombin Time 31.8 Seconds (9.4-12.1)
[2019-09-29] MEDS: DilTIAZem CD (24hr) 120 MG CAP.ER.24H PO SCH (10:21)
[2019-09-29] MEDS: *HR* SitaGLIPtin 25 MG TABLET PO SCH (10:21)
[2019-09-29] MEDS: Bumetanide 1 MG TABLET PO SCH (10:21)
[2019-09-29] MEDS ORDERED: *HR* Warfarin 1 MG TABLET PO ONE (18:00)
[2019-09-30] MEDS: Ampicillin 2 GM in 0.9 % Sodium Chloride Mini Bag 100 ML IVPB SCH ×2 (06:52→17:35)
[2019-09-30 07:14] LABS: Basophils % 0.2 %; Eosinophils # 0.3 K/mcL (0.0-0.6); Eosinophils % 3.3 %; Hematocrit 29.7 % (35.3-44.9); Hemoglobin 9.5 g/dL (11.5-15.4); Immature Granulocytes % 0.5 % (0-4); Lymphocytes # 2.4 K/mcL (0.6-4.6); Mean Corpuscular Hemoglobin 29.6 pg (28.0-33.3); Mean Corpuscular Volume 92.5 fL (83.0-100.0); Mean Platelet Volume 9.8 fL (9.4-12.4); Monocytes # 1.3 K/mcL (0.0-1.3); Monocytes % 12.8 %; Neutrophils # 6.1 K/mcL (1.6-8.9); Platelet Count 266 K/mcL (140-400); Red Blood Count 3.21 M/mcL (3.82-4.97); Red Cell Distribution Width 15.4 % (11.5-14.5); Segmented Neutrophils % 60.2 %; White Blood Count 10.2 K/mcL (4.3-11.1)
[2019-09-30 07:45] LABS: INR 2.8; Prothrombin Time 31.5 Seconds (9.4-12.1)
[2019-09-30 07:52] LABS: BUN/Creatinine Ratio 23 (6-26); Blood Urea Nitrogen 52 mg/dL (8-23); eGFR For African Americans 25 (> 60); eGFR For Non-African Americans 21 (> 60)
[2019-09-30] MEDS: Insulin LISPRO 300 UNITS/3 ML VIAL SQ SCH ×4 (08:02→21:32)
[2019-09-30] MEDS: Bumetanide 1 MG TABLET PO SCH (08:44)
[2019-09-30] MEDS: DilTIAZem CD (24hr) 120 MG CAP.ER.24H PO SCH (08:44)
[2019-09-30] MEDS: *HR* SitaGLIPtin 25 MG TABLET PO SCH (08:44)
[2019-09-30 10:16] LABS: C-Reactive Protein 37 mg/L (Less than 10)
[2019-09-30] MEDS ORDERED: *HR* Warfarin 1 MG TABLET PO ONE (18:00)
[2019-09-30] MEDS ORDERED: 0.9 % Sodium Chloride 1,000 ML IVC SCH (18:45)
[2019-10-01 05:35] LABS: INR 2.5; Prothrombin Time 28.6 Seconds (9.4-12.1)
[2019-10-01] MEDS: Ampicillin 2 GM in 0.9 % Sodium Chloride Mini Bag 100 ML IVPB SCH (05:36)
[2019-10-01 06:05] LABS: Calcium 8.3 mg/dL (8.6-10.3); Potassium 3.7 mEq/L (3.5-5.1)
[2019-10-01] MEDS: Insulin LISPRO 300 UNITS/3 ML VIAL SQ SCH ×4 (08:07→20:59)
[2019-10-01] MEDS: DilTIAZem CD (24hr) 120 MG CAP.ER.24H PO SCH (09:37)
[2019-10-01 09:39] LABS: Sodium, Urine 65.3 mEq/L
[2019-10-01] MEDS ORDERED: *HR* Warfarin 1 MG TABLET PO ONE (18:00)
[2019-10-01] MEDS: Amoxicillin 500 MG CAPSULE PO SCH (20:58)
[2019-10-02 07:24] VITALS: BP 136/70
[2019-10-02 07:27] LABS: INR 2.2
[2019-10-02] MEDS: Insulin LISPRO 300 UNITS/3 ML VIAL SQ SCH ×2 (08:52→12:08)
[2019-10-02] MEDS: DilTIAZem CD (24hr) 120 MG CAP.ER.24H PO SCH (09:21)
[2019-10-02] MEDS: Amoxicillin 500 MG CAPSULE PO SCH (09:21)
[2019-10-02 13:44] LABS: Potassium 4.1 mEq/L (3.5-5.1)
[2019-10-02] MEDS ORDERED: *HR* Warfarin 3 MG TABLET PO ONE (18:00)
== END 2019-10-02 15:24 | disposition home health service (06) ==
LOC: INPPIK 19:59
PROVIDERS: ADMIT Family Medicine; ATTEND Family Medicine